=== PATIENT | female | born 1935 | race African-American/Black ===

== ENCOUNTER 2025-01-03 15:21 | Emergency (ER) | payer MEDICARE, OTHER ==
[~2025-01-03] VITALS: Ht 172.7 cm; Wt 99.8 kg
[2025-01-03] MEDS ORDERED: diphenhydrAMINE 50 MG/1 ML VIAL ONE (16:52)
[2025-01-03] MEDS ORDERED: predniSONE 50 MG TABLET ONE (16:52)
[2025-01-03] MEDS ORDERED: FAMOTIDINE 20 MG TABLET ONE (16:52)
[2025-01-03] MEDS: FAMOTIDINE 20 MG TABLET PO ONE (16:58)
[2025-01-03] MEDS: diphenhydrAMINE 50 MG/1 ML VIAL IM ONE (16:58)
[2025-01-03] MEDS: predniSONE 50 MG TABLET PO ONE (16:58)
[2025-01-03] MEDS ORDERED: FAMO40TA7 PO (17:50)
[2025-01-03] MEDS ORDERED: PRED50TA PO (17:50)
[2025-01-03] MEDS ORDERED: CETI-90 PO (17:50)
[2025-01-03] MEDS ORDERED: LORA10TA7 PO (17:50)
[2025-01-03 18:40] VITALS: BP 120/71; O2SAT 99
== END 2025-01-03 18:41 | disposition home or self-care (01) ==
LOC: ER 15:21
DX: L50.9 Urticaria, unspecified (principal); E78.00 Pure hypercholesterolemia, unspecified; I10 Essential (primary) hypertension; Z79.52 Long term (current) use of systemic steroids; Z85.3 Personal history of malignant neoplasm of breast; Z96.651 Presence of right artificial knee joint; Z86.69 Personal history of other diseases of the nervous system and sense organs; Z87.19 Personal history of other diseases of the digestive system; Z60.2 Problems related to living alone; Z90.11 Acquired absence of right breast and nipple
CPT/HCPCS: 99283; 96372; J7512; J1200; A4606; A4663